=== PATIENT | male | born 1970 | race Caucasian/White ===

== ENCOUNTER 2019-11-13 21:17 | Emergency (ER) | payer OTHER ==
[~2019-11-13] VITALS: Ht 170.2 cm; Wt 86.2 kg
[~2019-11-13 21:17] MED LIST: ALAVERT10 MG PO; ALBUTEROL2.5 MG/0.1 INH; PROAIR HFA8.5 GM IH
[2019-11-13 22:39] VITALS: BP 140/87
--- NOTE | 2019-11-14 12:36 | EKG ---
[place] [address] ELECTROCARDIOGRAM REPORT Name: EL CONWAY Room: [facility]#: [id number] Admission: 11/13/19 Attend Phys: Discharge: 11/13/19 Date of : 68 Date of Service: 11/13/192150 Report #: [id number] THIS REPORT FOR: //name// [facility] ED Test Date: 2019-11-13 Test Time: 21:51:33 Pat Name: EL CONWAY Department: Room: Gender: [employer]: [place] : 1970 Requested By: Britany Glez Order Number: [id number] MD: Scott Leroy Measurements Intervals [place] Rate: 51 P: 24 CA: 149 QRS: 46 QRSD: 93 T: 5 QT: 426 QTc: 393 Interpretive Statements Sinus bradycardia No previous ECG available for comparison Electronically Signed On 11-14-2019 12:35:19 CDT by Scott Leroy [email or web address] <ELECTRONICALLY SIGNED> By: Scott Leroy MD, [facility] 11/14/19 1235 50 50 Scott Leroy MD, FACC /EPI
== END 2019-11-13 22:41 | disposition home or self-care (01) ==
LOC: M.ERS 21:17
DX: M25.512 Pain in left shoulder (principal); J45.909 Unspecified asthma, uncomplicated; R29.818 Other symptoms and signs involving the nervous system

== ENCOUNTER 2021-06-20 08:17 | Emergency (ER) | payer BC ==
[~2021-06-20] VITALS: Ht 170.2 cm; Wt 97.5 kg
[2021-06-20 08:59] LABS: ABSOLUTE EOSINOPHILS 0.2 thou/uL (0.0-0.7); ABSOLUTE MONOCYTES 0.8 thou/uL (0.0-1.2); ABSOLUTE NEUTROPHILS 3.9 thou/uL (1.6-8.1); BASOPHILS 0.5 %; EOSINOPHILS 4.1 %; HEMATOCRIT 41.2 % (42.0-52.0); HEMOGLOBIN 14.6 gm/dL (14.0-18.0); LYMPHOCYTES 17.5 %; MCH 30.6 pg (26.0-34.0); MCHC 35.4 g/dL (28.0-37.0); MCV 86.7 fL (80.0-100.0); MONOCYTES 12.7 %; MPV 6.6 fl. (7.2-11.1); NUCLEATED RBCS 0 /100WBC; PLATELET COUNT* 212 thou/uL (150-400); POLYS 65.2 %; RBC 4.76 mil/uL (4.50-6.00); RDW-CV 13.4 % (10.5-14.5); WBC 5.9 thou/uL (4.0-11.0)
[2021-06-20 09:11] LABS: CALCIUM 8.3 mg/dL (8.5-10.1); CREATININE 1.2 mg/dL (0.6-1.3)
[2021-06-20 09:16] LABS: ALBUMIN 3.5 g/dL (3.4-5.0); TOTAL BILIRUBIN 2.2 mg/dL (<0.1-1.0); TOTAL PROTEIN 7.4 g/dL (6.4-8.2)
[2021-06-20 10:43] LABS: URINE BILIRUBIN NEGATIVE (Negative); URINE BLOOD NEGATIVE (Negative); URINE CLARITY CLEAR; URINE COLOR YELLOW; URINE GLUCOSE-RANDOM NEGATIVE (Negative); URINE KETONES NEGATIVE (Negative); URINE LEUKOCYTES-REFLEX NEGATIVE (Negative); URINE NITRITE-REFLEX NEGATIVE (Negative); URINE PROTEIN NEGATIVE (Negative); URINE SPECIFIC GRAVITY <= 1.005 (1.005-1.030)
[2021-06-20] MEDS ORDERED: ZOFRAN ODT4 MG DISSOLVE (11:00)
[2021-06-20 11:03] VITALS: BP 137/73
--- NOTE | 2021-06-20 11:21 | EKG ---
[place] [address] ELECTROCARDIOGRAM REPORT Name: EL CONWAY Room: [facility]#: [id number] Admission: 06/20/21 Attend Phys: Discharge: 06/20/21 Date of : 68 Date of Service: 06/20/21 0845 Report #: [id number] THIS REPORT FOR: //name// [facility] ED Test Date: 2021-06-20 Test Time: 08:45:31 Pat Name: EL CONWAY Department: Room: Gender: [employer]: : 1970 Requested By: Srinivas Mack Order Number: [id number] MD: Scott Leroy Measurements Intervals [place] Rate: 64 P: 29 GA: 138 QRS: 27 QRSD: 96 T: 10 QT: 399 QTc: 412 Interpretive Statements Sinus rhythm Compared to ECG 11/13/2019 21:51:33 Sinus bradycardia no longer present Electronically Signed On 06-20-2021 11:21:12 CDT by Scott Leroy [email or web address] <ELECTRONICALLY SIGNED> By: Scott Leroy MD, [facility] 06/20/21 1121 0845 0845 Scott Leroy MD, [facility] /EPI
== END 2021-06-20 11:04 | disposition home or self-care (01) ==
LOC: M.ERS 08:17
PROVIDERS: Family Medicine
DX: R11.2 Nausea with vomiting, unspecified (principal); Z20.822 Contact with and (suspected) exposure to COVID-19; R19.7 Diarrhea, unspecified; R10.13 Epigastric pain; R50.9 Fever, unspecified; R05.9 Cough, unspecified; J02.9 Acute pharyngitis, unspecified; R07.89 Other chest pain; R06.02 Shortness of breath; R10.32 Left lower quadrant pain; R10.12 Left upper quadrant pain; J45.909 Unspecified asthma, uncomplicated; Z79.899 Other long term (current) drug therapy